=== PATIENT | male | born 1945 | race Caucasian/White ===

== ENCOUNTER 2018-02-10 10:25 | Observation (INO) | payer OTHER, BC ==
[2018-02-10 10:46] LABS: ADD MAN DIFF? NO
[2018-02-10 10:48] LABS: WHITE BLOOD COUNT 13.3 10^3/ul (4.8-10.8)
[2018-02-10 10:48] LABS: BASOPHILS % 0.2 % (0.0-2.0); EOSINOPHILS # 0.2 10^3/ul (0.0-0.5); EOSINOPHILS % 1.2 % (0.0-7.0); HEMATOCRIT 31.2 % (42.0-52.0); HEMOGLOBIN 10.3 g/dl (14.0-18.0); LYMPHOCYTES # 1.1 10^3/ul (0.8-2.9); LYMPHOCYTES % 7.9 % (15.0-51.0); MEAN CORPUSCULAR HEMOGLOBIN 30.4 pg (29.0-33.0); MEAN PLATELET VOLUME 8.9 fl (7.4-10.4); MONOCYTE # 1.1 10^3/ul (0.3-0.9); MONOCYTES % 8.3 % (0.0-11.0); NEUTROPHIL # 10.8 10^3/ul (1.6-7.5); NEUTROPHILS % 81.2 % (39.0-77.0); PLATELET COUNT 501 10^3/UL (140-415); RED BLOOD COUNT 3.39 10^6/ul (4.70-6.10); RED CELL DISTRIBUTION WIDTH 13.2 % (11.5-14.5)
[2018-02-10 11:10] LABS: ANION GAP 8 (5-13); BLOOD UREA NITROGEN 16 mg/dl (7-20); CALCIUM 8.8 mg/dl (8.4-10.2); CARBON DIOXIDE 25 mmol/L (21-31); CHLORIDE 102 mmol/L (97-110); CREATININE 0.96 mg/dl (0.61-1.24); GLUCOSE 123 mg/dl (70-220); POTASSIUM 4.3 mmol/L (3.5-5.1); SODIUM 135 mmol/L (135-144)
[2018-02-10 11:13] LABS: INR 1.22; PROTIME 15.6 Sec (11.9-14.9); PT RATIO 1.2
[2018-02-10 11:14] LABS: PARTIAL THROMBOPLASTIN TIME 36.4 Sec (23.0-35.0)
[2018-02-10 11:22] LABS: TROPONIN-I < 0.012 ng/ml (0.000-0.120)
[2018-02-10] MEDS: SOD CHLORIDE 0.9% 500 ML IV (11:29)
[2018-02-10 12:05] LABS: B-TYPE NATRIURETIC PEPTIDE 100 PG/ML (0-125)
[2018-02-10] MEDS: HYDROmorphONE 0.5 MG/0.5 ML SYG IV (12:35)
[2018-02-10] MEDS: ONDANSETRON 4 MG INJ IV ×2 (12:36→18:55)
[2018-02-10] MEDS: OXYCODONE/ACETAMINOPHEN (10/325) TAB PO (12:36)
[2018-02-10] MEDS ORDERED: ACETAMINOPHEN 325 MG TAB PO (15:00)
[2018-02-10] MEDS ORDERED: BISACODYL 10 MG SUPP PR (16:00)
[2018-02-10] MEDS ORDERED: NACL 0.9% 3 ML SYG IV (16:00)
[2018-02-10 17:57] LABS: CREATINE KINASE 72 IU/L (23-200)
[2018-02-10 18:09] LABS: CK INDEX 0.9; CK-MB 0.65 ng/ml (0.0-2.4); TROPONIN-I < 0.012 ng/ml (0.000-0.120)
[2018-02-10] MEDS: HYDROCODONE/APAP (5/325) TAB PO (18:59)
[2018-02-10] MEDS: ATORVASTATIN 20 MG TAB PO (21:16)
[2018-02-10] MEDS: LISINOPRIL 20 MG TAB PO (21:17)
[2018-02-10] MEDS: GABAPENTIN 100 MG CAP PO (21:17)
[2018-02-11 00:07] LABS: CREATINE KINASE 59 IU/L (23-200)
[2018-02-11 00:20] LABS: CK-MB 0.61 ng/ml (0.0-2.4); TROPONIN-I < 0.012 ng/ml (0.000-0.120)
[2018-02-11] MEDS: VERAPAMIL (SR) 240 MG TAB PO (01:37)
[2018-02-11] MEDS: HYDROCODONE/APAP (5/325) TAB PO ×2 (03:49→10:16)
[2018-02-11 05:11] LABS: ADD MAN DIFF? NO
[2018-02-11 05:12] LABS: WHITE BLOOD COUNT 13.5 10^3/ul (4.8-10.8)
[2018-02-11 05:12] LABS: BASOPHIL # 0.1 10^3/ul (0.0-0.1); BASOPHILS % 0.4 % (0.0-2.0); EOSINOPHILS # 0.2 10^3/ul (0.0-0.5); EOSINOPHILS % 1.7 % (0.0-7.0); HEMATOCRIT 30.6 % (42.0-52.0); HEMOGLOBIN 9.8 g/dl (14.0-18.0); LYMPHOCYTES % 7.6 % (15.0-51.0); MEAN CORPUSCULAR VOLUME 93.6 fl (82.0-101.0); MEAN PLATELET VOLUME 8.9 fl (7.4-10.4); MONOCYTE # 1.1 10^3/ul (0.3-0.9); MONOCYTES % 7.9 % (0.0-11.0); NEUTROPHIL # 10.8 10^3/ul (1.6-7.5); NEUTROPHILS % 80.5 % (39.0-77.0); PLATELET COUNT 510 10^3/UL (140-415); RED BLOOD COUNT 3.27 10^6/ul (4.70-6.10); RED CELL DISTRIBUTION WIDTH 13.1 % (11.5-14.5)
[2018-02-11 06:10] LABS: ALANINE AMINOTRANSFERASE 153 IU/L (13-69); ALBUMIN 2.9 g/dl (3.3-4.9); ALBUMIN/GLOBULIN RATIO 0.85; ALKALINE PHOSPHATASE 101 IU/L (42-121); ANION GAP 7 (5-13); ASPARTATE AMINO TRANSFERASE 105 IU/L (15-46); BILIRUBIN,INDIRECT 0.9 mg/dl (0-1.1); BILIRUBIN,TOTAL 0.9 mg/dl (0.2-1.3); BLOOD UREA NITROGEN 21 mg/dl (7-20); CALCIUM 9.1 mg/dl (8.4-10.2); CARBON DIOXIDE 26 mmol/L (21-31); CHLORIDE 101 mmol/L (97-110); CREATININE 1.03 mg/dl (0.61-1.24); GLUCOSE 121 mg/dl (70-220); POTASSIUM 4.9 mmol/L (3.5-5.1); SODIUM 134 mmol/L (135-144); TOTAL PROTEIN 6.3 g/dl (6.1-8.1)
[2018-02-11] MEDS: RIVAROXABAN 10 MG TABLET PO (06:19)
[2018-02-11] MEDS: LEVOTHYROXINE 150 MCG TAB PO (07:40)
[2018-02-11] MEDS: ONDANSETRON 4 MG INJ IV (09:16)
[2018-02-11] MEDS: SOLIFENACIN 5 MG TAB PO (09:19)
[2018-02-11] MEDS: LISINOPRIL 20 MG TAB PO (09:20)
[2018-02-11] MEDS: FAMOTIDINE 20 MG TAB PO (09:20)
[2018-02-11] MEDS: POLYETHYLENE GLYCOL 17 GM PACKET PO (09:21)
[2018-02-11 10:30] LABS: HEMOGLOBIN A1C 5.6 % (0-5.9)
== END 2018-02-11 14:16 | disposition home or self-care (01) ==
LOC: E/R 10:25 → 6WM 17:10
DX: R07.9 Chest pain, unspecified (principal); I10 Essential (primary) hypertension; E78.5 Hyperlipidemia, unspecified; I87.2 Venous insufficiency (chronic) (peripheral); Z96.652 Presence of left artificial knee joint; Z86.718 Personal history of other venous thrombosis and embolism; Z79.899 Other long term (current) drug therapy
CPT/HCPCS: 36415; 71045; 78582; 80048; 80053; 82550; 82553; 83036; 83880; 84443; 84484; 85025; 85610; 85730; 93005; 93306; 93971; 96374; 99285-25; G0378